=== PATIENT | female | born 1995 | race Two or more races ===

== ENCOUNTER 2025-06-25 01:20 | Inpatient (IN) | payer MEDICAID ==
[~2025-06-25] VITALS: Ht 160 cm; Wt 67.6 kg
[2025-06-25 02:27] LABS: Hematocrit 36.1 % (36.0-46.0); Hemoglobin 11.9 g/dL (12.2-16.2); Mean Corpuscular Hemoglobin 25.6 pg (28.0-32.0); Mean Corpuscular Volume 77.6 fL (80.0-100.0); Nucleated Red Blood Cells % 0.0 %
[2025-06-25 02:35] LABS: Urine Protein, UAD Negative (Negative)
[2025-06-25 02:42] LABS: Alanine Aminotransferase 16 U/L (7-40); Albumin 3.8 g/dL (3.2-4.8); Anion Gap 11 (5-15); BUN/Creatinine Ratio 8.8 (10.0-20.0); Calcium 8.9 mg/dL (8.7-10.4); Carbon Dioxide 20 mmol/L (20-31); Chloride 107 mmol/L (98-107); Glucose 95 mg/dL (74-106); INR 0.92 (0.9-1.15); Partial Thromboplastin Time 26.8 SEC (24.5-34.5); Potassium 4.1 mmol/L (3.5-5.1); Prothrombin Time 9.8 sec (9.3-11.8); Sodium 138 mmol/L (136-145); Total Protein 6.7 g/dL (5.7-8.2)
[2025-06-25 02:43] LABS: Bilirubin, Total 0.4 mg/dL (0.2-1.0)
[2025-06-25 02:44] LABS: Alkaline Phosphatase 274 U/L (46-116); Blood Urea Nitrogen 5 mg/dL (9-23)
[2025-06-25 02:51] LABS: Cocaine Screen, Urine Neg (NEGATIVE)
[2025-06-25 02:52] LABS: Amphetamine Screen, Urine Neg (NEGATIVE); Barbiturate Scree,Urine Neg (NEGATIVE); Benzodiazephine Screen, Urine Neg (NEGATIVE); Cannabinoid Screen, Urine Neg (NEGATIVE); Opiate Scree,Urine Neg (NEGATIVE); Phencyclidine Screen, Urine Neg (NEGATIVE)
--- NOTE | 2025-06-25 03:10 | DVH ---
EXAM: US OB ULTRASOUND COMP GTR 14 WKS HISTORY: no care, no records TECHNIQUE: Multiple real-time grayscale images of the gravid uterus with duplex Doppler color flow and M-mode spectral analysis. COMPARISON: None FINDINGS: IUP single live fetus at 37 weeks 5 days average ultrasound age (AUA) based on composite averages of the BPD, head circumference, abdominal circumference and femur length Age based on (early ultrasound) : 39 weeks 1 day MEASUREMENTS: BPD: 9.4 cm GA: 38 w 1 d HC: 33.0 cm GA: 37 w 5 d AC: 33.6 cm GA: 37 w 3 d FL: 7.3 cm GA: 37 w 3 d Estimated weight 3246+/-487 grams; 40th percentile. heart rate 124 beats per minute DEANGELO 9.5 cm, MVP 3.6 cm ANATOMIC SURVEY: Complete anatomic survey not performed at this time. Cephalic Presentation Posterior grade III placenta without previa or abruption Cervix not visualized. IMPRESSION: 1. IUP single live fetus at 37 weeks 5 days AUA corresponding to an ANGIE of 07/11/2025. 2. No abnormality detected.
--- NOTE | 2025-06-25 03:41 | DVHHP2 ---
OB CC & HPI Date Date of Admission: Jun 25, 2025 Patient Identification: : 5 Para: 4 EDC: Jul 01, 2025 EGA: 39w1d Chief Complaints: Reason for admission: induction of labor Indication for induction: medical complication (PIH) History of Present Complaints Marguerite Justice is a 29yo with IUP at 39w1d presenting for r/o labor. Patient states she has been randa for a couple days and felt like they got stronger and closer together earlier in the evening. Denies leaking fluid, vaginal bleeding, FERRER, vision changes, or RUQ pain. Endorses +FM. PNC: No care. Patient found out about the "at 5 months" and nobody would take her as a patient so she "gave up". Had occasional 4D US to get pictures of baby OB hx: - x4 -States she was induced with her last baby because her BP was high Past Medical History Cardiac: No pertinent Hx Pulmonary: No pertinent Hx Central Nervous System: No pertinent Hx GI: No pertinent Hx Hemotology/Oncology: No pertinent Hx Hepatobiliary: No pertinent Hx Psychiatric: No pertinent Hx Musculoskeletal: No pertinent Hx Rheumotologic: No pertinent Hx Infectious Disease: No peritnent Hx ENT: No pertinent Hx Renal/: No pertinent Hx Endocrine: No pertinent Hx Dermatology: No pertinent Hx Past Surgical History: No pertinent Hx Others 2009- had mass removed from R breast OB History OB History Care: None Ultrasounds: No ultrasounds Obstetrical Complications: Gestational Hypertension Allergies: Coded Allergies: NO KNOWN ALLERGIES (Unverified , 06/25/25) Family & Social History Family/Social History Past Family/Social History: denies pertinent family history Social Hx: -denies drug, tobacco, or alcohol use in -denies depression, anxiety, or suicidal ideation -denies hx of abuse, feels safe at home. -denies hx STIs Blood Type: Unknown Rubella: immune RPR/VDRL: Negative GBS Status: Unknown HBsAG: Negative Review of Systems Constitutional: No symptom reported Ears, Nose, & Throat: No symptom reported Eyes: No symptom reported Pulmonary/Respiratory: No symptom reported Cardiovascular: No symptom reported Gastrointestinal: No symptom reported Genitourinary: No symptom reported Musculoskeletal: No symptom reported Skin: No symptom reported Psychiatric: No symptom reported Endocrine: No symptom reported Hemotologic/Lymphatic: No symptom reported OB Admission Exam Physical Exam Vitals: Recurrent elevated (but not severe) BPs HEENT: Nasal Mucosa Normal, Eyes non-injected, Oropharynx Normal, PERRLA, Moist Membranes, EOMI Heart: Rhythm Normal Lungs: Clear Abdomen: Gravid (EFW: 3230 by anisa) Extremities: Normal Reflexes: Normal Pelvic Exam: 4.5/50/-2 Membranes: Intact Heart Rate: 120's Accelerations: Accelerations Present Decelerations: No Decelerations Short Term Variability: Present Custodial Variability: Average (6-25) Contractions on Admission: < 5 Minutes Apart Intensity: Moderate OB Plan Plan Admitting Diagnosis: Gestational hypertension Plan: Induction Induction Methd: Pitocin protocol Other Plan: ASSESSMENT: -29 yo , IUP at 39w1d -IOL- gHTN -Category 1 Tracing -GBS unknown -No care PLAN: -Plan of care and plan discussed with Patient -Process, Risks, benefits, of available management options discussed, including starting with pitocin, possible Internal monitoring of UCs & FHT, AROM, amnioinfusion etc only when indicated. Patient agrees to starting with pitocin at this time; other interventions as indicated. Informed Consent obtained -Consent for possible blood transfusion obtained. -All questions and concerns answered. -Admit to Place for Labor -Routine L&D Admission orders -EFM per policy. OK to be intermittent per protocol, if FHR tracing is reactive and category 1 -Encourage ambulation and/exercises / frequent position change to facilitate labor & descent -Begin GBS prophylaxis per protocol for GBS unknown and higher risk with no care -Supportive care as needed. Patient OK to get epidural when requested -Re-assess cervix 3-4 hours after pitocin start or sooner as indicated Visit Coding OBGYN Date of Service: Jun 25, 2025 Billing Provider: PATRICIO MUKHERJEE CNM REINFORCING STEEL WORKER WIRE MESH Common Visit Codes: [id number] INP/OBS CARE (HIGH) REINFORCING STEEL WORKER [employer] MESH Procedure Codes: 17641-74- NON-STRESS TEST PATRICIO MUKHERJEE CNM Jun 25, 2025 03:41
[2025-06-25] MEDS ORDERED: BUTORPHANOL TARTRATE 2 MG/1 ML VIAL IV PRN ×2 (04:00)
[2025-06-25] MEDS ORDERED: LIDOCAINE 2%HCL (LOCAL ANESTH.) INJ 20ML MDV IJ PRN (04:00)
[2025-06-25] MEDS ORDERED: TERBUTALINE SULFATE 1 MG/ML 1ML VIAL SC PRN (04:00)
[2025-06-25] MEDS: PENICILLIN G POT 5MIL/D5 50ML 50 ML IV ONE (04:29)
[2025-06-25] MEDS: LACTATED RINGER'S 1,000 ML IV SCH (04:29)
[2025-06-25 04:31] LABS: Urine Protein, UAD Negative (Negative)
[2025-06-25 04:34] LABS: Protein, Urine < 6.0 mg/dL (1-14)
[2025-06-25 05:02] LABS: Cannabinoid Screen, Urine Neg (NEGATIVE)
[2025-06-25 05:04] LABS: Amphetamine Screen, Urine Neg (NEGATIVE); Barbiturate Scree,Urine Neg (NEGATIVE); Benzodiazephine Screen, Urine Neg (NEGATIVE); Cocaine Screen, Urine Neg (NEGATIVE); Opiate Scree,Urine Neg (NEGATIVE); Phencyclidine Screen, Urine Neg (NEGATIVE)
[2025-06-25] MEDS: WITCH HAZEL-GLYCERIN PAD TOP PRN (05:32)
[2025-06-25] MEDS: DERMOPLAST 60ML BOTTLE TOP PRN (05:32)
[2025-06-25] MEDS: PHISODERM TOP SOLN 240ML BTL TOP PRN (05:32)
[2025-06-25] MEDS: LACTATED RINGER'S 500 ML IV ONE ×2 (05:33→06:43)
--- NOTE | 2025-06-25 06:25 | EPIDURAL ---
Anesthesia Procedural Note - Epidural Date: Jun 25, 2025 Informed consent obtained?: Yes Medication Administered: Fentanyl 100 mcg Medication Administered: ePHEDrine 5 mg IV Sterile prept drape: Yes Spinal level of insertion: L2-L3 Start time: 05:35 End time: 06:15 RIKI ASKEW MD Jun 25, 2025 06:25
[2025-06-25] MEDS ORDERED: SODIUM CHLORIDE 0.9% 500 ML IV PRN (06:30)
[2025-06-25] MEDS: LIDOCAINE HCL 2 %PF INJ 10ML AMP IJ ONE (06:35)
[2025-06-25] MEDS: fentaNYL CITRATE 100 MCG/2 ML VL IV ONE ×2 (06:38→06:43)
[2025-06-25] MEDS: ROPIVACAINE HCL 100 ML ONE (06:39)
[2025-06-25] MEDS: fentaNYL 400mCg/200ml W ROPIVA 200 ML EPI SCH (06:43)
--- NOTE | 2025-06-25 06:49 | RESUS ---
CODE ASSIST ASSESSSMENT Initial Information Code Assist Time: 06:00 Location of Arrest: [facility] Room # [facility] 5 Crash Cart Opened and Supplies: No Situation Staff concerned/worried, speci: SBP <90 or 10 from baseli Situation comment: Drastic change from blood pressure baseline after epidural. BP went from a systolic of 190 to unreadable. Background Background: Marguerite Justice is a 29yo with IUP at 39w1d presenting for r/o labor. Patient states she has been randa for a couple days and felt like they got stronger and closer together earlier in the evening. Denies leaking fluid, vaginal bleeding, FERRER, vision changes, or RUQ pain. Endorses +FM. Assessment Blood Pressure Systolic: 109 Blood Pressure Diastolic: 52 Respiratory Rate: 16 O2 Sat by Pulse Oximetry: 97 Assessment comment: BP on seccond attempt Recommendations/Interventions Medications and Responses : Medication Time: 06:02 ADULT Medications Given: Route of Administration: IV Medication Comment: 10mg 100mcg of phenylephrine IV Both pushed by Dr. Dillon Heart Rate: 78 EKG Rhythm: Sinus Rhythm Blood Pressure Systolic: 190 (baseline) Blood Pressure Diastolic: 105 Respiratory Rate: 17 O2 Sat by Pulse Oximetry: 97 Procedures: Cardiac Monitoring, O2 Mask/NC Outcome Outcome: Problem Resolved Team Members Team Members Ike Douglas BICYCLE RACER, Shalonda secretary to the vice president, Yasmine RN, Mireya RN, Douglas ER charge, Melida ICU charge, Joanie MUSEUM TECHNICIAN, CHINEDU Narayan RN Jun 25, 2025 06:49
--- NOTE | 2025-06-25 06:51 | DVHPN2 ---
CNM Labor Progress Note Date and Time Seen Date Seen: Jun 25, 2025 Time Seen: 06:05 Subjective Subjective Comment Called to bedside by rn relief charge related to high epidural placement, dramatic decrease in patient BP, and rapid response called. Upon entry to room, patient responsive and stating that she feels tired. Dr. Dillon (anesthesia) still at bedside setting up epidural pump Objective Vital Signs Labile BPs r/t gHTN and administration of ephedrine and phenylephrine Monitoring Method Monitoring Method: External Heart Rate Heart Rate Baseline: 140 Heart Rate Variability: Moderate Presence of FHR Accelerations: Yes Presence of FHR Decelerations: Yes Comment on Trends or Patterns: cat 2 during hypotensive crash. recovered and back to cat 1 Contractions Contractions Frequency: Other (every 3-4 minutes) Contractions Intensity: Moderate Contractions Resting Tone: Relaxed Membranes Membranes: Intact Vaginal Exam Vag Exam Deferred: Yes Medications Medications - Pitocin: No Medication - Epidural: Yes Lab Results Lab Results Vital Signs Date Time Temp Pulse Resp B/P (MAP) Pulse Ox O2 Delivery O2 Flow Rate FiO2 06/25/25 06:38 140/105 Current Medications Medications (Trade) Dose Ordered Sig/Wale Start Time Stop Time Status Last Admin Dose Admin Lactated Ringer's 1,000 ml @ 125 mls/hr Q8H 06/25/25 04:00 06/25/25 04:29 125 MLS/HR Penicillin G Potassium 50 ml @ 100 mls/hr ONCE ONCE 06/25/25 04:00 06/25/25 04:29 DC 06/25/25 04:29 100 MLS/HR Penicillin G Potassium 3208605 units/Dextrose 50 ml @ 100 mls/hr Q4H 06/25/25 08:00 Janina Arrieta (Tucks) 1 pad PRN PRN 06/25/25 04:00 06/25/25 05:32 1 PAD Sodium Lauryl Sulfate (Phisoderm) 240 ml PRN PRN 06/25/25 04:00 06/25/25 05:32 240 ML Benzocaine (Dermoplast) 1 applic PRN PRN 06/25/25 04:00 06/25/25 05:32 1 APPLIC Butorphanol Tartrate (Stadol Injection) 1 mg Q4HPRN PRN 06/25/25 04:00 Butorphanol Tartrate (Stadol Injection) 2 mg Q4HPRN PRN 06/25/25 04:00 Lidocaine HCl (Xylocaine) 40 ml ONCE PRN 06/25/25 04:00 Terbutaline Sulfate (Brethine Inj) 0.25 mg ONCE PRN 06/25/25 04:00 Oxytocin 1,000 ml @ 6 ml/hr Q24H 06/25/25 04:45 Oxytocin 500 ml @ 999 mls/hr Q31M ONCE 06/25/25 08:00 06/25/25 08:30 Oxytocin 500 ml @ 125 mls/hr Q4H ONCE 06/25/25 08:30 06/25/25 12:29 Naloxone HCl (Narcan) 0.2 mg PRN ONCE 06/25/25 05:15 06/25/25 05:16 DC Ephedrine Sulfate (ePHEDrine SULFATE) 10 mg PRN ONCE 06/25/25 05:15 06/25/25 05:16 DC 06/25/25 06:36 10 MG Fentanyl Citrate 100 mcg ONCE ONCE 06/25/25 05:15 06/25/25 05:16 DC 06/25/25 06:38 100 MCG Lidocaine HCl (Xylocaine-Pf 2% Injection) 10 ml ONCE ONCE 06/25/25 05:15 06/25/25 05:16 DC 06/25/25 06:35 10 ML Lactated Ringer's 500 ml @ 500 mls/hr Q1H ONCE 06/25/25 05:15 06/25/25 06:14 DC 06/25/25 05:33 500 MLS/HR Sodium Chloride 500 ml @ 500 mls/hr Q1H PRN 06/25/25 06:30 Naloxone HCl (Narcan) 0.2 mg PRN ONCE 06/25/25 06:30 06/25/25 06:31 DC Ephedrine Sulfate (ePHEDrine SULFATE) 10 mg PRN ONCE 06/25/25 06:30 06/25/25 06:31 DC Fentanyl Citrate 100 mcg ONCE ONCE 06/25/25 06:30 06/25/25 06:31 DC Lactated Ringer's 500 ml @ 500 mls/hr Q1H ONCE 06/25/25 06:30 06/25/25 07:29 Fentanyl/ Ropivacaine 200 ml @ 8 mls/hr UD 06/25/25 06:30 06/27/25 06:29 Laboratory Tests Test 06/25/25 03:54 06/25/25 02:07 Range/Units Urine Color Light-yellow Yellow Urine Clarity Clear Clear Urine pH 7.0 5.0-9.0 Urine Specific [place] 1.007 1.001-1.035 Urine Protein Negative Negative Urine Ketones Negative Negative Urine Blood Negative Negative /uL Urine Nitrite Negative Negative Urine Bilirubin Negative Negative Urine Urobilinogen Normal Negative mg/dL Urine Leukocyte Esterase 1+ Negative /uL Urine RBC None seen 0 - 4 /hpf Urine Microscopic WBC 1 0-5 /HPF Urine Squamous Epithelial Cells Few <5 /hpf Urine Bacteria None seen None Seen /hpf Urine Creatinine 37.65 30.0-125.0 mg/dL Urine Protein/Creatinine Ratio 0.16 Urine Glucose Normal Normal mg/dL Urine Total Protein < 6.0 1-14 mg/dL Urine Opiates Screen Neg NEGATIVE Urine Fentanyl Screen Neg NEGATIVE Urine Barbiturates Screen Neg NEGATIVE Urine Phencyclidine Screen Neg NEGATIVE Urine Amphetamines Screen Neg NEGATIVE Urine Benzodiazepines Screen Neg NEGATIVE Urine Cocaine Screen Neg NEGATIVE Urine Cannabinoids Screen Neg NEGATIVE Chlamydia trachomatis (AURY) Pending Neisseria gonorrhoeae (AURY) Pending White Blood Count 8.1 4.4-10.8 10^3/uL Red Blood Count 4.66 4.0-5.20 10^6/uL Hemoglobin 11.9 L 12.2-16.2 g/dL Hematocrit 36.1 36.0-46.0 % Mean Corpuscular Volume 77.6 L 80.0-100.0 fL Mean Corpuscular Hemoglobin 25.6 L 28.0-32.0 pg Mean Corpuscular Hemoglobin Concent 33.0 32.0-36.0 g/dL Red Cell Distribution Width 16.3 H 11.8-14.3 % Platelet Count 311 140-450 10^3/uL Mean Platelet Volume 8.2 6.9-10.8 fL Neutrophils (%) (Auto) 53.3 37.0-80.0 % Lymphocytes (%) (Auto) 40.9 10.0-50.0 % Monocytes (%) (Auto) 5.0 0.0-12.0 % Eosinophils (%) (Auto) 0.5 0.0-7.0 % Basophils (%) (Auto) 0.3 0.0-2.0 % Neutrophils # (Auto) 4.3 1.6-8.6 10 ^3/uL Lymphocytes # (Auto) 3.3 0.4-5.4 10 ^3/uL Monocytes # (Auto) 0.4 0-1.3 10 ^3/uL Eosinophils # (Auto) 0 0-0.8 10 ^3/uL Basophils # (Auto) 0 0-0.2 10 ^3/uL Nucleated Red Blood Cells 0.0 % Prothrombin Time 9.8 9.3-11.8 sec Prothrombin Time INR 0.92 0.9-1.15 Activated Partial Thromboplast Time 26.8 24.5-34.5 SEC Sodium Level 138 136-145 mmol/L Potassium Level 4.1 3.5-5.1 mmol/L Chloride Level 107 98-107 mmol/L Carbon Dioxide Level 20 20-31 mmol/L Anion Gap 11 5-15 Blood Urea Nitrogen 5 L 9-23 mg/dL Creatinine 0.57 0.550-1.02 mg/dL Glomerular Filtration Rate Calc 125 >90 mL/min BUN/Creatinine Ratio 8.8 L 10.0-20.0 Serum Glucose 95 74-106 mg/dL Hemoglobin A1c 5.8 H <5.7 % A1C Uric Acid 3.9 3.1-7.8 mg/dL Calcium Level 8.9 8.7-10.4 mg/dL Total Bilirubin 0.4 0.2-1.0 mg/dL Aspartate Amino Transferase (AST) 27 13-40 U/L Alanine Aminotransferase (ALT) 16 7-40 U/L Alkaline Phosphatase 274 H 46-116 U/L Total Protein 6.7 5.7-8.2 g/dL Albumin 3.8 3.2-4.8 g/dL Treponema pallidum Antibody Non-reactive Negative Hepatitis B Surface Antigen Negative Negative Hepatitis C Antibody Negative Negative HIV (1&2) Antibody Negative Negative Rubella Antibody Positive Assessment Assessment ASSESSMENT: -29 yo , IUP at 39w1d -IOL- gHTN -Category 1 Tracing with intermittent category 2 -GBS unknown -No care Plan Plan PLAN: -Frequently change maternal position to facilitate labor & descent -Continue GBS prophylaxis per protocol for GBS unknown and higher risk with no care -Ephedrine at bedside and IV bolus continuing -Begin pitocin once BPs are stable and baby is reactive and category 1 -Re-assess cervix 3-4 hours after pitocin start or sooner as indicated -Anticipate normal spontaneous vaginal delivery -Consulted and co-managed with Dr Moore Plan discussed with: Patient Visit Coding OBGYN Date of Service: Jun 25, 2025 Billing Provider: PATRICIO MUKHERJEE CNM DRESSER TENDER Common Visit Codes: [id number] INP/OBS CARE(HIGH) PATRICIO MUKHERJEE CNM Jun 25, 2025 06:51
[2025-06-25] MEDS: LACT. RINGERS/OXYTOCIN 20UNITS 1,000 ML IV SCH (07:34)
[2025-06-25] MEDS: NALOXONE HCL 0.4 MG/ML VIAL IV ONE ×2 (08:00)
[2025-06-25] MEDS: PENICILLIN G POTASSIUM 2,500,000 UNITS in D5W 5% 50 ML IV SCH (09:18)
--- NOTE | 2025-06-25 10:12 | LDN2 ---
Labor and Delivery Note Date 06/25/25 Age 29 5 Para 5 EGA 39.1 Diagnosis Term , delivered GDMA1 Vaginal Delivery: VTX Vacuum Assisted: No Placenta: Spontaneous Sex: Male Weight Pending Apgars 8/9 Amniotic Fluid: Clear Anesthesia Epidural Episiotomy: No Repaired with N/A; no lacerations (intact) EBL 75 mL Labs Laboratory Tests 06/25/25 02:07: Hepatitis B Surface Antigen Negative, HIV (1&2) Antibody Negative, Rubella Antibody Positive Blood Bank 06/25/25 02:07: Blood Type O POSITIVE Complications None Visit Coding OBGYN Date of Service: Jun 25, 2025 Billing Provider: ARIEL FLORES DO RESTORATION TECHNICIAN Common Visit Codes: PROCEDURE ONLY RESTORATION TECHNICIAN Procedure Codes: [id number] OB CARE,VAG DELIVERY ARIEL FLORES DO Jun 25, 2025 10:12
[2025-06-25] MEDS ORDERED: ONDANSETRON ODT 4 MG TAB PO PRN (10:15)
[2025-06-25] MEDS ORDERED: IBUPROFEN 800 MG TAB PO SCH (12:00)
[2025-06-25] MEDS: LACT. RINGERS/OXYTOCIN 20UNITS 500 ML IV ONE ×2 (13:34→13:35)
[2025-06-25 15:20] VITALS: BP 166/101; PULSE 68; RESP 18; TEMP 98; O2SAT 97
[2025-06-25] MEDS: IBUPROFEN 800 MG TAB PO PRN (16:24)
[2025-06-25] MEDS: LABETALOL HCL 200 MG TAB PO SCH (16:24)
[2025-06-25 19:00] VITALS: BP 117/74; PULSE 75; RESP 20; TEMP 98.5; O2SAT 98
[2025-06-25] MEDS: DOCUSATE SOD 100 MG CAP PO SCH (21:52)
[2025-06-25 23:06] VITALS: BP 119/65; PULSE 66; RESP 16; TEMP 98.1; O2SAT 97
[2025-06-26 03:00] VITALS: BP 118/78; PULSE 73; RESP 16; TEMP 98.3; O2SAT 100
[2025-06-26 04:27] LABS: Hematocrit 31.8 % (36.0-46.0); Hemoglobin 10.5 g/dL (12.2-16.2); Mean Corpuscular Hemoglobin 25.7 pg (28.0-32.0); Mean Corpuscular Volume 77.8 fL (80.0-100.0); Nucleated Red Blood Cells % 0.0 %
[2025-06-26 06:40] VITALS: BP 119/71; PULSE 92; RESP 16; TEMP 98; O2SAT 97
[2025-06-26] MEDS ORDERED: LABE200T10 PO (07:24)
[2025-06-26] MEDS ORDERED: IBUP-1455 PO (07:24)
--- NOTE | 2025-06-26 07:26 | DVHDS2 ---
Physician Discharge Progress N Final Diagnosis: Term delivered Chronic HTN vs Gestational HTN No care Operations or Procedures: Operations or Procedures Commentary: Commentary BP elevated , controlled on oral Labetalol Condition on Discharge: Stable Disposition: Home Discharge Instructions: Diet: Regular Activity: Light activity Follow Up/Referral: [address] Moore for BP check Medications: Labetalol, Motrin Follow Up Care: Discharge Statement: "Patient was advised to return to the ER or call 911 if any headaches, dizziness, shortness of breath, chest pain, abdominal pain, bleeding, fevers, or worsening of medical condition. Patient was counseled about treatment plan, medications, possible side effects, patientverbalized understanding. All questions were answered to the best of my ability. This discharge took greater then 30 minutes in planning, reviewing documentation, counseling the patient, and discussing with other team members." Visit Coding OBGYN Date of Service: Jun 26, 2025 Billing Provider: ARIEL FLORES DO NUT SORTER Common Visit Codes: [id number]/OBS DISCH DAY <30MIN ARIEL FLORES DO Jun 26, 2025 07:26
[2025-06-26 11:30] VITALS: BP 110/59; PULSE 88; RESP 16; TEMP 98; O2SAT 96
[2025-06-27 03:37] LABS: Chlamydia Trachomatis, NAA Negative (Negative); Neisseria gonorrhoeae, NAA Negative (Negative)
== END 2025-06-26 13:27 | disposition home or self-care (01) | DRG 560 ==
LOC: LDRP 01:20 → OBSVTOIN 03:25 → LDRP 03:31
PROVIDERS: ADMIT Obstetrics & Gynecology; ATTEND Obstetrics & Gynecology
PROC: 10E0XZZ Delivery of Products of Conception, External Approach (ICD-10-PCS; principal; 2025-06-25)
PROC: 3E0R3BZ Introduction of Anesthetic Agent into Spinal Canal, Percutaneous Approach (ICD-10-PCS; 2025-06-25)
PROC: 00HU33Z Insertion of Infusion Device into Spinal Canal, Percutaneous Approach (ICD-10-PCS; 2025-06-25)
DX: O13.4 Gestational [pregnancy-induced] hypertension without significant proteinuria, complicating childbirth (principal); Z37.0 Single live birth; O24.420 Gestational diabetes mellitus in childbirth, diet controlled; Z3A.39 39 weeks gestation of pregnancy
CPT/HCPCS: 36415; 59025; 59409; 62282; 76805; 80053; 80307; 81001; 82570; 83036; 84156; 84550; 85025; 85610; 85730; 86703; 86762; 86780; 86803; 86850; 86900; 86901; 87081; 87340; 94760; 96360; 96361; 96365; 96366; 96374; 96375; G0378; J2540; J2590; J7060